=== PATIENT | male | born 1975 | race Caucasian/White ===

== ENCOUNTER 2019-12-07 22:37 | Emergency (ER) | payer SELFPAY ==
[2019-12-07] MEDS ORDERED: HYDROcodone/Acetaminophen 5/325 mg Tablet ONE (23:09)
[2019-12-07] MEDS ORDERED: Benzonatate 100 MG CAP ONE (23:09)
== END 2019-12-07 23:15 | disposition home or self-care (01) ==
LOC: MADERS 22:37
DX: J20.8 Acute bronchitis due to other specified organisms (principal)
CPT/HCPCS: 99283

== ENCOUNTER 2020-04-27 06:47 | Emergency (ER) | payer OTHER, SELFPAY ==
[2020-04-27] MEDS ORDERED: Ondansetron PF 4 MG/2 ML Vial ONE (07:24)
[2020-04-27] MEDS ORDERED: Sodium Chloride 0.9% 1,000 ML ONE ×2 (07:24→08:29)
[2020-04-27] MEDS ORDERED: Ibuprofen 800 MG TAB ONE (07:24)
--- NOTE | 2020-04-27 07:35 | RAD ---
Chest one view HISTORY: Fever. FINDINGS: Cardiac silhouette is magnified by projection. Pulmonary vasculature is unremarkable. Mediastinum is midline. No lobar consolidation or evidence of pneumothorax. IMPRESSION : No abnormalities are demonstrated.
[2020-04-27 07:46] LABS: Hemoglobin 15.4 g/dL (14.0-18.0); Mean Corpuscular HGB CONC 32.7 g/dL (32.0-36.0); Mean Corpuscular Hemoglobin 30.6 pg (27.0-31.0); Mean Corpuscular Volume 93.6 fL (78.0-98.0); Mean Platelet Volume 7.6 fL (7.4-10.4); Platelet Count 224 thou/uL (130-400); RBC Distribution Width 11.6 % (11.5-14.5); Red Blood Cell (RBC) Count 5.07 mill/uL (4.70-6.10); White Blood Cell (WBC) Count 3.9 thou/uL (4.8-10.8)
[2020-04-27 07:47] LABS: ALT (SGPT) 92 U/L (8-55); AST (SGOT) 77 U/L (5-34); Albumin 4.3 g/dL (3.5-5.0); Alkaline Phosphatase 58 U/L (40-110); Anion Gap 15 mmol/L (10-20); BUN (Urea Nitrogen) 7 mg/dL (8.9-20.6); Bilirubin, Total 0.8 mg/dL (0.2-1.2); CK (CPK) 111 U/L (30-200); Calc. Creatinine Clearance 0 mL/min (70-130); Calcium 9.1 mg/dL (7.8-10.44); Carbon Dioxide 23 mmol/L (22-29); Chloride 100 mmol/L (98-107); Estimated GFR-MDRD 70; Globulin 3.4 g/dL (2.4-3.5); Glucose 115 mg/dL (70-105); Protein, Total 7.7 g/dL (6.0-8.3); Sodium 134 mmol/L (136-145)
[2020-04-27 07:59] LABS: Anisocytosis SLIGHT = 6-15 cells (100X) (0-5/hpf); Band 11 % (5-11); Lymphocytes 16 % (21-51); MDiff Complete? YES; Manual Diff?? YES; Monocytes 9 % (0-10); Neutrophil 64 % (42-75); Platelet Morphology Comment Appears Adequate
[2020-04-27 08:03] LABS: Bilirubin Small (Negative); Blood, Urine Negative (Negative); Clarity Clear (Clear); Glucose, Urine (Dipstick) 100 mg/dL (Negative); Ketone, Urine Negative (Negative); Leukocyte Negative (Negative); Nitrite Negative (Negative); Protein, Urine (Dipstick) 100 mg/dL (Neg-Trace); Urobilinogen > or = 8.0 mg/dL (Less than 2); pH, Urine 7.5 (5.0-9.0)
[2020-04-27] MEDS ORDERED: cefTRIAXone\\ROCEPHIN 2 GM VIAL ONE (08:06)
[2020-04-27] MEDS ORDERED: Sodium Chloride 0.9% 100 ML ONE (08:06)
[2020-04-27 08:09] LABS: Bacteria/HPF Rare-Few HPF (None Seen); RBC/HPF 0-3 HPF (0-3); Squamous Epithelial 0-3 HPF (0-3); WBC/HPF 0-3 HPF (0-3)
[2020-04-27] MEDS ORDERED: Acetaminophen 500 MG TAB ONE (08:29)
--- NOTE | 2020-04-27 09:10 | CT ---
CT lumbar spine without contrast: HISTORY: Fever and diffuse back pain. Back pain since Sunday. COMPARISON: No prior CT exams of the lumbar spine available FINDINGS: There are several nonobstructing 2 to 3 mm right renal calculi present with a few tiny 2 mm nonobstru cting left renal calculi present. Subcentimeter too small to characterize hypodense lesion is seen in the superior pole left kidney. There is no hydronephrosis present. The limited visualized liver de monstrates decreased attenuation reflective of fatty infiltration. No fracture or subluxation is seen involving the lumbar spine L1-2: No significant central canal or neural foraminal narrowing is seen. L2-3: No significant central canal or neural foraminal narrowing is seen. L3-4: There is a mild disc osteophyte complex greater laterally on the left resulting in mild left-si ded neural foraminal narrowing. The central spinal canal and right neural foramen are patent at this level. L4-5: No significant central canal and neural foraminal narrowing is seen. L5-S1: No significant central canal or neural foraminal narrowing is seen. IMPRESSION: 1. No fracture or traumatic subluxation is seen involving the lumbar spine. 2. Mild disc degenerative changes at the L3-4 level with disc osteophyte complex present greater late rally on the left with resultant mild left-sided neural foraminal narrowing. 3. Nonobstructing bilateral renal calculi. 4. Subcentimeter too small to characterize hypodense lesion superior pole left kidney. 5. Fatty infiltration visualized liver.
--- NOTE | 2020-04-27 09:20 | CT ---
EXAM: CT Thoracic Spine WO Con PROVIDED CLINICAL HISTORY: Fever and diffuse back pain. Back pain since Sunday. COMPARISON: None FINDINGS: There is biapical pleural and parenchymal scarring present. Visualized lungs are otherwise clear. Min imal vascular calcifications are seen in the coronary arteries and at the aortic arch. There is diminished attenuation visualized liver suggesting fatty infiltration. As noted on CT lumbar spine, there is a subcentimeter too small to characterize hypodense lesion in t he superior pole left kidney with nonobstructing 2 to 3 mm bilateral renal calculi present. Paravertebral soft tissues have a normal appearance. There is a remote posterior right 11th rib fract ure. There are mild degenerative changes at C6-7 level with mild endplate degenerative changes and probabl e small disc osteophyte complex present. Vertebral body heights and intervertebral disc spaces of the thoracic spine appear to be within jose l limits. No fracture or subluxation is seen involving the thoracic spine. There is a small central disc protrusion at the T8-9 level which narrows the ventral subarachnoid spa ce and encroaches on the anterior aspect of the spinal cord. Neural foramina are patent at this level. No additional intradural or extradural defect is appreciated, and the central spinal canal and neural foramina are patent at the remaining levels of the thoracic spine. IMPRESSION: 1. No fracture or traumatic subluxation involving the thoracic spine. 2. Central disc protrusion at the T8-9 level which narrows the ventral subarachnoid space. Neural for david are patent at this level. 3. Nonobstructing bilateral renal calculi. 4. Subcentimeter too small to characterize hypodense lesion superior pole left kidney. This is better evaluated on CT abdomen also obtained on this date. 5. Fatty infiltration visualized liver.
--- NOTE | 2020-04-27 09:26 | CT ---
CT ABDOMEN AND PELVIS WITH IV CONTRAST 04/27/2020 CLINICAL INFORMATION: Generalized abdominal pain with vomiting and fever. COMPARISON: None. Technique: Multiple contiguous axial CT images are obtained through the abdomen and pelvis with IV contrast. Cor onal reformatted images are provided. FINDINGS: Lower Chest: Lung bases are clear. Vessels: Abdominal aorta is normal in caliber. Abdomen: Portal vein:Patent Gallbladder: Within normal limits for CT imaging. Liver: Decreased attenuation suggesting diffuse fatty infiltration with small focal area of fatty spa ring adjacent to the gallbladder. The liver is enlarged in craniocaudal dimensions measuring approximately 21 cm. Spleen: within normal limits. Pancreas: within normal limits. Adrenals: within normal limits. Kidneys: Several 2 to 3 mm nonobstructing right renal calculi are seen with a few nonobstructing 2 mm left renal calculi seen. There is a 1.3 cm fluid attenuation right renal parapelvic cyst with a left superior pole fluid attenuation lesion measuring 1.4 cm compatible with small cyst. No enhancing renal mass is seen. Bowel: Normal caliber. Appendix: The appendix is visualized and normal in caliber. Peritoneum: No ascites or free air; no fluid collection. Mesentery and Retroperitoneum: No enlarged mesenteric or retroperitoneal lymph nodes. Abdominal Wall: within normal limits. Pelvis: Reproductive Organs: No pelvic masses. Bladder: Incompletely distended but grossly within normal limits. Bones: No suspicious lytic or sclerotic osseous lesions. IMPRESSION: 1. No acute findings in the abdomen or pelvis. 2. Hepatomegaly with diffuse fatty infiltration liver. 3. Nonobstructing bilateral renal calculi. 4. Small bilateral renal cysts.
[2020-04-27] MEDS ORDERED: Iopamidol 370 76% 100 ML VIAL ONE (10:20)
== END 2020-04-27 10:02 | disposition home or self-care (01) ==
LOC: MADERS 06:47
DX: R50.9 Fever, unspecified (principal); R11.2 Nausea with vomiting, unspecified
CPT/HCPCS: 71045; 72128; 72131; 74177; 80053; 81003; 81015; 82550; 83605; 85025; 87040; 87086; 94760; 96361; 96365; 96375; J0696; J2405; J3490; J7050; Q9967

== ENCOUNTER 2024-03-08 04:45 | Emergency (ER) | payer BC, SELFPAY ==
[2024-03-08] MEDS ORDERED: Ketorolac Tromethamine 30 MG (1 mL) VIAL ONE (05:22)
[2024-03-08] MEDS ORDERED: predniSONE 20 MG TAB ONE (05:22)
== END 2024-03-08 05:45 | disposition home or self-care (01) ==
LOC: MADERS 04:45
DX: M54.12 Radiculopathy, cervical region (principal); F17.290 Nicotine dependence, other tobacco product, uncomplicated
CPT/HCPCS: 96372; J1885; J7512